=== PATIENT | male | born 1985 | race Caucasian/White ===

== ENCOUNTER 2020-10-20 18:32 | Emergency (ER) | payer MEDICARE, MEDICAID ==
[~2020-10-20] VITALS: Ht 175.3 cm; Wt 65.9 kg
[2020-10-20 19:59] LABS: BASOPHILS % (AUTO) 0.3 % (0-1); EOSINOPHILS # (AUTO) 0.1 X10'3 (0-0.9); EOSINOPHILS % (AUTO) 0.5 % (0-6); HEMATOCRIT 50.4 % (42.0-52.0); LYMPHOCYTES # (AUTO) 1.2 X10'3 (1.1-4.8); LYMPHOCYTES % (AUTO) 10.5 % (21-51); MEAN CORPUSCULAR HEMOGLOBIN 29.1 PG (27.0-31.0); MEAN CORPUSCULAR HGB CONC 33.7 g/dL (33.0-36.5); MEAN CORPUSCULAR VOLUME 86.4 FL (78-98); MEAN PLATELET VOLUME 8.2 FL (7.4-10.4); MONOCYTES # (AUTO) 1.1 X10'3 (0-0.9); MONOCYTES % (AUTO) 9.7 % (2-12); PLATELET COUNT 256 X10'3 (140-440); RED BLOOD COUNT 5.82 X10'6 (4.70-6.10); RED CELL DISTRIBUTION WIDTH 13.4 % (11.5-14.5); WHITE BLOOD COUNT 11.5 X10'3 (4.5-11.0)
[2020-10-20 20:13] LABS: ALANINE AMINOTRANSFERASE 46 U/L (12-78); ALBUMIN 4.4 G/DL (3.4-5.0); ALBUMIN/GLOBULIN RATIO 1.2 (1.1-1.5); ALKALINE PHOSPHATASE 68 IU/L (46-116); ANION GAP 15 (8-16); ASPARTATE AMINO TRANSFERASE 19 U/L (10-37); BILIRUBIN,TOTAL 0.8 MG/DL (0.1-1.0); BLOOD UREA NITROGEN 20 MG/DL (7-18); BUN/CREATININE RATIO 14.6 (5.4-32.0); CALCIUM 9.8 MG/DL (8.5-10.1); CHLORIDE 103 MMOL/L (99-107); CREATININE 1.37 MG/DL (0.60-1.10); GLUCOSE 121 MG/DL (70-104); LIPASE 80 U/L (73-393); POTASSIUM 3.5 MMOL/L (3.5-5.1); SODIUM 142 MMOL/L (135-145); TOTAL PROTEIN 8.2 G/DL (6.4-8.2); eGFR 59 ML/MIN
[2020-10-20] MEDS ORDERED: mag hydrox/Alum hydrox/simeth 30ml oral suspension PO ONE (20:55)
[2020-10-20] MEDS ORDERED: ondansetron 4mg rapidly disintigrating tab PO ONE (20:55)
[2020-10-20] MEDS ORDERED: pantoprazole 40mg Tablet.DR PO ONE (20:55)
[2020-10-20] MEDS ORDERED: LIDOcaine Viscous 15ml cup MM ONE (20:55)
[2020-10-20 21:22] LABS: CLARITY,URINE SLIGHTLY CLOUDY (Clear); COLOR,URINE YELLOW (Yellow); GLUCOSE, URINE NEGATIVE (Neg); KETONES,URINE NEGATIVE (Neg); LEUKOCYTE ESTERASE ,URINE NEGATIVE (Neg); NITRITES, URINE NEGATIVE (Neg); OCCULT BLOOD,URINE NEGATIVE (Neg); PROTEIN,URINE NEGATIVE (Neg)
[2020-10-20 21:23] LABS: UA COLLECTION TYPE CLN CATCH MIDSTREAM
[2020-10-20 21:52] LABS: BACTERIA,URINE 1+ /HPF (Neg); MUCUS STRANDS FEW /LPF (Neg); RBC,URINE NONE SEEN /HPF (0-2); SQUAMOUS EPITHELIAL CELL,UR MODERATE /LPF (FEW); WBC,URINE 0-4 /HPF (0-4)
[2020-10-20 21:53] LABS: CAL OXALATE CRYSTALS 3+ /HPF (NEGATIVE)
[2020-10-20] MEDS ORDERED: ONDA4TAB6 PO (22:00)
[2020-10-20] MEDS ORDERED: AMOX-422 PO (22:00)
[2020-10-20 22:15] VITALS: BP 110/72
== END 2020-10-20 22:08 | disposition home or self-care (01) ==
LOC: ER 18:33
DX: R11.2 Nausea with vomiting, unspecified (principal); R10.13 Epigastric pain; R10.31 Right lower quadrant pain; Z79.899 Other long term (current) drug therapy
CPT/HCPCS: 36415; 74176; 80053; 81001; 83690; 85025; 93005; 99283; 99285